=== PATIENT | male | born 1990 | race Caucasian/White ===

== ENCOUNTER 2016-10-23 11:09 | Emergency (ER) | payer OTHER ==
[~2016-10-23] VITALS: Ht 180.3 cm; Wt 99.8 kg
[2016-10-23] MEDS ORDERED: DIVALPROEX SOD500 M3 PO (11:51)
--- NOTE | 2016-10-23 12:00 | ED HEAD/FACIAL INJ COMPLAINT ---
History of Present Illness General Chief Complaint: Skin Rash/ Abcess Stated Complaint: LFT SIDED FACIAL SWOLLEN/HX OF AUTISM Source: patient, family Exam Limitations: no limitations Vital Signs & Intake/Output Vital Signs & Intake/Output Vital Signs Date Time Temp Pulse Resp B/P B/P Pulse O2 O2 Flow FiO2 Mean Ox Delivery Rate 10/23 1609 99.8 93 18 143/86 98 Room Air 10/23 1457 99.6 89 18 149/89 97 Room Air 10/23 1118 97.9 96 16 96 Room Air Allergies Coded Allergies: NO KNOWN ALLERGIES (11/20/14) Triage Note: 25 Y/O MALE C/O L SIDED FACIAL SWELLING X 2-3 DAYS. CHEEK SWOLLEN ON L SIDE. PT REPORTS PAIN INSIDE MOUTH. PT CAME FROM DR BEARD'S OFFICE AND HAD BLOOD DRAWN THERE - SENT TO ED FOR ? IV ANTIBIOTICS. Triage Nurses Notes Reviewed? yes Onset: Gradual Severity: moderate Severity Numbers: 3 (3) Location: left side of face Method of Injury: unknown HPI: Patient is a 25-year-old male presenting to the emergency department with chief complaint of left-sided face swelling and tightness of been going on for the past 3 days. He reports that it started off as a pimple and over the past couple days it's been increasing in size with purulent drainage. He saw his primary care physician this morning who told him to come to the emergency department for evaluation. Family denies any fevers or chills. Denies any nausea or vomiting. History of cystic acne in the past but nothing significant. Has been using topical ointments which seem to be helping slightly. Family reports that the swelling has gone down since yesterday. Denies any other areas of pain or concern. Denies any trouble breathing or swallowing. No numbness or tingling. (MARYSOL CURRY,KUSH) Reconcile Medications Clindamycin HCl (Cleocin HCl) 300 MG CAPSULE 1 CAP PO TID ABSCESS Divalproex Sodium (Divalproex Sodium ER) 500 MG TAB.ER.24H 2 TAB PO DAILY SEIZURES (Reported) (EDILBERTO HARDIN DO) Past History Travel History Traveled to [place] past 21 day No Medical History Any Pertinent Medical History? see below for history Neurological: MR EENT: NONE Cardiovascular: NONE Respiratory: NONE Gastrointestinal: NONE Hepatic: NONE Renal: NONE Musculoskeletal: NONE Psychiatric: NONE Endocrine: NONE Blood Disorders: NONE Cancer(s): NONE RECREATIONAL THERAPY AIDE/Reproductive: NONE Surgical History Surgical History: non-contributory Psychosocial History What is your primary language Serbian Tobacco Use: Never used Family History Hx Contributory? No (KUSH TURNER) Review of Systems Review of Systems Constitutional: Reports: no symptoms. Comments Review of systems: See HPI, All other systems negative. Constitutional, no chills fever or weight loss HEENT: No visual changes no sore throat no congestion Cardiovascular: No chest pain ,palpitation , orthopnea or ankle swelling Skin, no jaundice Respiratory: No dyspnea cough sputum or hemoptysis GI: No nausea no vomiting Muscle skeletal: no back pain, no neck pain, Neurologic: No numbness Psych: No stress anxiety or depression,. Heme/endocrine: No bruising no bleeding Immunology: No splenectomy or history of AIDS (KUSH TURNER) Physical Exam Physical Exam General Appearance: well developed/nourished, no apparent distress, alert, awake , comfortable Cranial Nerves: cn 2-12 intact Comments: Well-developed well-nourished person in no acute distress HEENT:Pupils equally round and reactive to light and accommodation. Nose is atraumatic. External auditory canal and Tympanic membranes clear. Pharynx normal. No swelling or edema. Neck: Supple, no lymphadenopathy, normal range of motion without pain or tenderness. No palpable preauricular or postauricular adenopathy as well. Back: Nontender Cardiovascular: Regular rate and rhythms no murmurs rubs or gallops, normal JVP Respiratory: Chest nontender. No respiratory distress.breath sounds clear to auscultation bilaterally Extremity: No edema Neuro: Alert oriented x3, motor sensory normal, cranial nerves II through XII grossly intact. Skin: Large fluctuant erythematous lesion approximately 2 cm noted just lateral to the left side of the mouth. Small nonpurulent drainage noted in this area. The area surrounding this raised lesion is firm, tender. No dental abscesses appreciated. Psych: Mood and affect is normal, memory and judgment is normal. (KUSH TURNER) Progress Differential Diagnosis: cellulitis, abrasion, cystic acne, abscess Plan of Care: Orders Procedure Date/time Status Heart Healthy Diet 10/23 D Active Vital Signs 10/23 1528 Complete HEAD & NECK CULTURE 10/23 1345 Active BLOOD CULTURE 10/23 1232 Active COMPREHENSIVE METABOLIC PANEL 10/23 1201 Complete CBC WITHOUT DIFFERENTIAL 10/23 1201 Complete Laboratory Tests 10/23/16 1220: Anion Gap 13, Estimated GFR > 60, BUN/Creatinine Ratio 14.4, Glucose 88, Calcium 9.8, Total Bilirubin 0.8, AST 25, ALT 68, Alkaline Phosphatase 56, Total Protein 8.8 H, Albumin 5.0, Globulin 3.8, Albumin/Globulin Ratio 1.3, CBC w Diff NO MAN DIFF REQ, RBC 5.26, MCV 82.4, MCH 28.4, RDW 12.7, MPV 8.1, Gran % 64.7, Lymphocytes % 22.2, Monocytes % 12.2 H, Eosinophils % 0.7, Basophils % 0.2, Absolute Granulocytes 7.4 H, Absolute Lymphocytes 2.5, Absolute Monocytes 1.4 H, Absolute Eosinophils 0.1, Absolute Basophils 0, PUBS MCHC 34.5 Microbiology 10/23 1451 HEAD/NECK: Head/Neck Culture - RECD 10/23 1451 HEAD/NECK: Gram Stain - RECD 10/23 1220 BLOOD: Blood Culture - RECD Diagnostic Imaging: Viewed by Me: CT Scan. Discussed w/RAD: CT Scan. Radiology Impression: PATIENT: EMMANUEL ROSAS PRESENT AGE: 25 PATIENT ACCOUNT NO: [id number] : 91 LOCATION: [facility] ORDERING PHYSICIAN: KUSH CURRY SERVICE DATE: 10/23/16-1200 EXAM TYPE: CAT - CT FACE/SINUS WITH CONTRAST EXAMINATION: CT SINUS WITH IV CONTRAST CLINICAL INFORMATION: Assess depth of facial abscess. COMPARISON: CT scan of the head 11/20/2014. TECHNIQUE: Multidetector helical imaging was performed in the axial plane with generation of coronal and sagittal and oblique sagittal reformatted images. Intravenous contrast: 94 mL Optiray 320. DLP: 710.27 mGy-cm. FINDINGS: There is an area of induration in the buccal/labial soft tissues along the left midface. There is mild thickening of the overlying skin extending to the subcutaneous fat along the left submandibular region, and there is thickening of the platysma muscle. There is no discrete fluid collection. There are no radiopaque foreign bodies. No periapical lucencies are demonstrated. There is a residual deciduous left mandibular first molar tooth, with absence of the permanent left first premolar tooth. There are no periapical lucencies. There are prominent left level 1B lymph nodes measuring up to 2.2 cm. The submandibular glands appear normal in size and symmetric in density. The visualized parotid glands are unremarkable. The base of tongue and floor of mouth are unremarkable. The opacification in the left ethmoid sinuses has resolved since the prior study. The nasal septum is deviated to the left and there is a left-sided bony nasal septal spur. There is a left middle turbinate conchae bullosa. The visualized mastoid air cells are well-aerated. The temporomandibular joints appear normal. The upper cervical spine appears normal. No abnormal intracranial findings are demonstrated on the available images. IMPRESSION: 1. There is an area of soft tissue induration in the buccal/labial region along the left mid face. There is mild thickening of the overlying skin, extending to the subcutaneous fat and left submandibular region with thickening of the platysma muscle. There are prominent left level 1B lymph nodes, likely reactive. No discrete fluid collections or abscesses are demonstrated. 2. There are no periapical lucencies or evidence of mandibular or maxillary abnormalities. Comments: 10/23/2016 1:32:53 PM on arrival patient is afebrile no acute distress neurologically intact. He does have a large, raised, lesion approximately 2 cm on the left lower cheek. This likely an abscess, originating from acne. Due to severity of symptoms patient will go for CT to assess depth of abscess. Patient ALSO STARTE DON IV abx initiated. 10/23/2016 4:09:11 PM patient informed of all of her results and imaging studies. Patient will continue antibiotics and return for worsening symptoms or concerns. Culture was sent off. He'll see his primary care physician tomorrow. Patient nontoxic. (MARYSOL CURRY,KUSH) Departure Departure Time of Disposition: 1450 Disposition: HOME OR SELF CARE Condition: Stable Clinical Impression Primary Impression: Abscess Referrals: CHIRAG JOYNER,RENESTINA Puga (PCP/Family) Additional Instructions: Follow-up with Dr. garcia in 1-2 days for a check. Take antibiotics as prescribed. Apply warm compresses over affected area. Take [id number] Tylenol and Motrin to help with pain and swelling. Return for worsening symptoms or concerns. Departure Forms: Customer Survey General Discharge Information Prescriptions: Current Visit Scripts Clindamycin HCl (Cleocin HCl) 1 CAP PO TID #30 CAP (KUSH TURNER) PA/CHAIRMAN AND CEO Co-Sign Statement Statement: ED Attending supervision documentation- [X] I saw and evaluated the patient. I have also reviewed all the pertinent lab results and diagnostic results. I agree with the findings and the plan of care as documented in the PA's/CHAIRMAN AND CEO's documentation. [] I have reviewed the ED Record and agree with the PA's/CHAIRMAN AND CEO's documentation. [] Additions or exceptions (if any) to the PAs/CHAIRMAN AND CEO's note and plan are summarized below: [] (EDILBERTO HARDIN DO) Procedures Incision and Drainage Site: LEFT CHEEK Blade Size: 11 I & D Procedure: Yes: betadine prep, sterile drapes applied, sterile dressing applied. No: wick placed. Progress: Small nonpurulent drainage expelled from the abscess. Cleaned with Betadine and saline. Patient tolerated procedure well. Area was anesthetized with 1% lidocaine without epinephrine initially, 3 mL. This was done with a 25-gauge needle after Betadine prep. (KUSH TURNER)
[2016-10-23 13:00] LABS: ABSOLUTE BASOPHIL COUNT 0 /CUMM (0.0-0.2); ABSOLUTE EOSINOPHIL COUNT 0.1 /CUMM (0.0-0.7); ABSOLUTE GRANULOCYTE CT 7.4 /CUMM (1.4-6.5); ABSOLUTE LYMPH COUNT 2.5 /CUMM (1.2-3.4); ABSOLUTE MONOCYTE COUNT 1.4 /CUMM (0.10-0.60); BASOPHIL % 0.2 % (0.0-2.0); EOSINOPHIL % 0.7 % (0-5); GRANULOCYTE % 64.7 % (42.2-75.2); HEMATOCRIT 43.3 % (42-52); MEAN CORPUSCULAR HGB 28.4 PG (27.0-31.0); MEAN CORPUSCULAR HGB CONC 34.5 G/DL (33.0-37.0); MEAN CORPUSCULAR VOLUME 82.4 FL (80.0-94.0); MEAN PLATELET VOLUME 8.1 FL (7.4-10.4); PLATELET COUNT 275 /CUMM (130-400); RBC DISTRIBUTION WIDTH 12.7 % (11.5-14.5); RED BLOOD CELL CT 5.26 /CUMM (4.70-6.10); WHITE BLOOD CELL COUNT 11.4 /CUMM (4.8-10.8)
[2016-10-23] MEDS ORDERED: CLEOCIN HCL300 M1 PO (14:52)
--- NOTE | 2016-10-23 15:58 | CT SCAN REPORT ---
EXAMINATION: CT SINUS WITH IV CONTRAST CLINICAL INFORMATION: Assess depth of facial abscess. COMPARISON: CT scan of the head 11/20/2014. TECHNIQUE: Multidetector helical imaging was performed in the axial plane with generation of coronal and sagittal and oblique sagittal reformatted images. Intravenous contrast: 94 mL Optiray 320. DLP: 710.27 mGy-cm. FINDINGS: There is an area of induration in the buccal/labial soft tissues along the left midface. There is mild thickening of the overlying skin extending to the subcutaneous fat along the left submandibular region, and there is thickening of the platysma muscle. There is no discrete fluid collection. There are no radiopaque foreign bodies. No periapical lucencies are demonstrated. There is a residual deciduous left mandibular first molar tooth, with absence of the permanent left first premolar tooth. There are no periapical lucencies. There are prominent left level 1B lymph nodes measuring up to 2.2 cm. The submandibular glands appear normal in size and symmetric in density. The visualized parotid glands are unremarkable. The base of tongue and floor of mouth are unremarkable. The opacification in the left ethmoid sinuses has resolved since the prior study. The nasal septum is deviated to the left and there is a left-sided bony nasal septal spur. There is a left middle turbinate conchae bullosa. The visualized mastoid air cells are well-aerated. The temporomandibular joints appear normal. The upper cervical spine appears normal. No abnormal intracranial findings are demonstrated on the available images. IMPRESSION: 1. There is an area of soft tissue induration in the buccal/labial region along the left mid face. There is mild thickening of the overlying skin, extending to the subcutaneous fat and left submandibular region with thickening of the platysma muscle. There are prominent left level 1B lymph nodes, likely reactive. No discrete fluid collections or abscesses are demonstrated. 2. There are no periapical lucencies or evidence of mandibular or maxillary abnormalities.
[2016-10-23 16:09] VITALS: BP 143/86
== END 2016-10-23 16:16 ==
LOC: ERH 11:09
PROVIDERS: Physician Assistant
DX: L02.01 Cutaneous abscess of face (principal)
CPT/HCPCS: 87184; 87040; 87070; 87147; 96374